=== PATIENT | male | born 2000 | race American Indian/Alaskan Native ===

== ENCOUNTER 2021-10-07 14:13 | Emergency (ER) | payer SELFPAY ==
[2021-10-07] MEDS ORDERED: diphenhydrAMINE 50 MG/ML VIAL IV ONE (14:43)
[2021-10-07] MEDS ORDERED: METOCLOPRAMIDE 10 MG/2 ML INJ IV ONE (14:43)
[2021-10-07] MEDS ORDERED: SODIUM CHLORIDE 0.9% 1000 ML 1,000 ML IV ONE (14:43)
--- NOTE | 2021-10-07 15:18 | Cat Scan Report ---
CT BRAIN: 10/07/2021 INDICATION / CLINICAL INFORMATION: severe headache. COMPARISON: None available. FINDINGS: BRAIN/INTRACRANIAL STRUCTURES: Unenhanced CT images of the brain demonstrate no evidence of acute abn ormality. Ventricles and sulci are normal in size and shape. There is no evidence of hemorrhage or mass. There are no abnormal extra-axial fluid collections. EXTRACRANIAL STRUCTURES: Incidental note is made of complete opacification of the sphenoid sinus with some mild mucosal thickening present in ethmoid air cells. IMPRESSION: No evidence of acute intracranial abnormality. Sphenoid sinus opacification. All CT scans at this location are performed using dose reduction to ALARA by means of automated expos ure control. Signer Name: Slick Lino MD Signed: 10/07/2021 3:14 PM Workstation Name: [id number]
--- NOTE | 2021-10-07 15:23 | Emergency Department Report ---
ED Headache HPI - General Chief Complaint: Headache Stated Complaint: HEADACHE DAYS X 4 Source: patient Exam Limitations: no limitations - History of Present Illness Initial Comments: Patient is a 21-year-old -[place] male with no past medical history presents to the ED with complaint of acute onset persistent severe left frontal headache that radiates to the occipital area with nausea for the last 1 week. Patient states that he has been taking [id number] medications with no relief. Patient states that in the last 2 days he has not been able to sleep because of worsening headache with blurry vision. Patient denies dizziness, syncope, chest pain, shortness of breath, cough, sore throat, neck pain, back pain, abdominal pain, traumatic injury or fall and heavy lifting. Timing/Duration: 1 week, constant, waxing and waning Quality: severe, constant, pressure, sharp Head Injury Location: occipital Recent Head Trauma: no recent headache/trauma Associated Symptoms: denies symptoms, loss of consciousness, nausea/vomiting. denies: confusion, fatigue, facial pain, fever/chills, flushing, nasal congestion, nasal drainage, rash, seizures, sinus infection, stiff neck, vision changes, weakness Allergies/Adverse Reactions: Allergies No Known Allergies Allergy (Verified 10/07/21 14:28) Home Medications: Ambulatory Orders Amoxicillin/Potassium Clav [Augmentin 875-125 Tablet] 1 each PO Q12H #20 tab 0 10/07/21 Butalb/Acetamin/Caff 50-325-40 [Fioricet 50-325-40] 1 - 2 tab PO Q6HR PRN #15 tab 10/07/21 Ibuprofen [Motrin] 600 mg PO Q8H PRN #30 tablet 10/07/21 Ondansetron [Zofran Odt] 4 mg PO Q8HR PRN #15 tab.rapdis 10/07/21 ED Review of Systems ROS: Stated complaint: HEADACHE DAYS X 4 Other details as noted in HPI Constitutional: denies: chills, fever Eyes: denies: eye pain, eye discharge, vision change ENT: denies: ear pain, throat pain Respiratory: denies: cough, shortness of breath, wheezing Cardiovascular: denies: chest pain, palpitations Endocrine: no symptoms reported Gastrointestinal: denies: abdominal pain, nausea, vomiting, diarrhea Genitourinary: denies: urgency, dysuria Musculoskeletal: denies: back pain, joint swelling, arthralgia Skin: denies: rash, lesions Neurological: denies: headache, weakness, paresthesias Psychiatric: denies: anxiety, depression Hematological/Lymphatic: denies: easy bleeding, easy bruising ED Past Medical Hx - Medications Home Medications: Home Medications Medication Instructions Recorded Confirmed Last Taken Type Amoxicillin/Potassium Clav 1 each PO Q12H #20 tab 10/07/21 Unknown Rx [Augmentin 875-125 Tablet] Butalb/Acetamin/Caff 50-325-40 1 - 2 tab PO Q6HR PRN #15 tab 10/07/21 Unknown Rx [Fioricet 50-325-40] Ibuprofen [Motrin] 600 mg PO Q8H PRN #30 tablet 10/07/21 Unknown Rx Ondansetron [Zofran Odt] 4 mg PO Q8HR PRN #15 tab.rapdis 10/07/21 Unknown Rx ED Physical Exam - General Limitations: No Limitations General appearance: alert, in no apparent distress - Head Head exam: Present: atraumatic, normocephalic, normal inspection - Eye Eye exam: Present: normal appearance, PERRL, EOMI Pupils: Present: normal accommodation - ENT ENT exam: Present: normal exam, normal orophraynx, mucous membranes moist, TM's normal bilaterally, normal external ear exam - Neck Neck exam: Present: normal inspection, full ROM. Absent: tenderness - Respiratory Respiratory exam: Present: normal lung sounds bilaterally. Absent: respiratory distress, wheezes, rales, rhonchi, chest wall tenderness, accessory muscle use, decreased breath sounds, prolonged expiratory - Cardiovascular Cardiovascular Exam: Present: regular rate, normal rhythm, normal heart sounds. Absent: systolic murmur, diastolic murmur, rubs, gallop - GI/Abdominal GI/Abdominal exam: Present: soft, normal bowel sounds. Absent: tenderness, guarding, hyperactive bowel sounds, hypoactive bowel sounds, organomegaly - Extremities Exam Extremities exam: Present: normal inspection, full ROM, normal capillary refill - Back Exam Back exam: Present: normal inspection, full ROM. Absent: tenderness, CVA tenderness (R), CVA tenderness (L), muscle spasm, paraspinal tenderness, vertebral tenderness - Neurological Exam Neurological exam: Present: alert, oriented X3, CN II-XII intact, normal gait, reflexes normal - Psychiatric Psychiatric exam: Present: normal affect, normal mood - Skin Skin exam: Present: warm, dry, intact, normal color. Absent: rash ED Course Vital Signs 10/07/21 10/07/21 10/07/21 14:29 16:03 17:39 Temperature 98.3 F 97.7 F Pulse Rate 86 97 H 80 Respiratory 16 17 16 Rate Blood Pressure 110/70 Blood Pressure 104/51 [Left] O2 Sat by Pulse 100 199 H 100 Oximetry ED Medical Decision Making - Radiology Data Radiology results: report reviewed, image reviewed [facility] [address] [place] [address] Cat Scan Report Signed Patient: SEDRICK POZO MR#: [id number] 8 : 2000 Acct:[id number] Age/Sex: 21 / M ADM Date: 10/07/21 Loc: ED Attending Dr: Ordering Physician: VERONICA NOE Date of Service: 10/07/21 Procedure(s): CT head/brain wo con Accession Number(s): [id number] cc: VERONICA NOE CT BRAIN: 10/07/2021 INDICATION / CLINICAL INFORMATION: severe headache. COMPARISON: None available. FINDINGS: BRAIN/INTRACRANIAL STRUCTURES: Unenhanced CT images of the brain demonstrate no evidence of acute abnormality. Ventricles and sulci are normal in size and shape. There is no evidence of hemorrhage or mass. There are no abnormal extra-axial fluid collections. EXTRACRANIAL STRUCTURES: Incidental note is made of complete opacification of the sphenoid sinus with some mild mucosal thickening present in ethmoid air cells. IMPRESSION: No evidence of acute intracranial abnormality. Sphenoid sinus opacification. All CT scans at this location are performed using dose reduction to ALARA by means of automated exposure control. Signer Name: Slick Lino MD Signed: 10/07/2021 3:14 PM Workstation Name: [id number] Transcribed By: GUERITA Dictated By: Slick Lino MD Electronically Authenticated By: Slick Lino MD Signed Date/Time: 10/07/211513 DD/ 11 TD/TT: Print Cancel - Medical Decision Making This is a 21-year-old -[place] male with no past medical history presents to the ED with complaint of acute onset persistent severe left frontal headache that radiates to the occipital area with nausea for the last 1 week. Patient states that he has been taking [id number] medications with no relief. Patient states that in the last 2 days he has not been able to sleep because of worsening headache with blurry vision. In the ED, patient is alert and oriented x3 and is not in any distress. Patient was treated for pain in the ED and also received normal saline 1 L IV bolus x1. The head CT scan without contrast showed no acute intracranial abnormalities or hemorrhage. There was however an incidental finding of complete opacification of the sphenoid sinus with some mild mucosal thickening present in ethmoid air cells. On r eevaluation, patient's headache is well controlled with medication. Patient was discharged home on medications for headache and was discharged home on antibiotics as well for sinus infection. Patient was advised to follow-up with his primary care physician in 7 to 10 days for reevaluation or return to the ED immediately if symptoms get worse. - Differential Diagnosis Sinus headache, sinusitis; migraine headache; tension headache, SAH Critical care attestation.: If time is entered above; I have spent that time in minutes in the direct care o f this critically ill patient, excluding procedure time. ED Disposition Clinical Impression: Sinus headache Acute ethmoidal sinusitis, unspecified Qualifiers: Recurrence: non-recurrent Qualified Code(s): J01.20 - Acute ethmoidal sinusitis, unspecified Disposition: 01 HOME / SELF CARE / HOMELESS Is pt being admited?: No Does the pt Need Aspirin: No Condition: Stable Instructions: Sinusitis, Adult, [id number], Sinus Headache, Upper Respiratory Infection, Adult, Nkzu-[id number] Additional Instructions: Take medication with food, drink plenty of fluids and follow-up with your primary care physician in 7 to 10 days for reevaluation. Return to the ED immediately if symptoms get worse. Prescriptions: Amoxicillin/Potassium Clav [Augmentin 875-125 Tablet] 1 each PO Q12H #20 tab Butalb/Acetamin/Caff 50-325-40 [Fioricet 50-325-40] 1 - 2 tab PO Q6HR PRN #15 tab PRN Reason: Headache Ibuprofen [Motrin] 600 mg PO Q8H PRN #30 tablet PRN Reason: Pain Ondansetron [Zofran Odt] 4 mg PO Q8HR PRN #15 tab.rapdis PRN Reason: Nausea Referrals: YUNIEL BHAGAT MD [Primary Care Provider] - 3-5 Days Time of Disposition: 17:37 Print Language: TURKISH
[2021-10-07 18:37] VITALS: BP 101/60
== END 2021-10-07 18:40 | disposition home or self-care (01) ==
LOC: ED 14:13
DX: J01.20 Acute ethmoidal sinusitis, unspecified (principal); G44.89 Other headache syndrome
CPT/HCPCS: 70450; 96361; 96374; 96375; 99283; J1200; J2765; J7030